=== PATIENT | male | born 1950 | race Caucasian/White ===

== ENCOUNTER 2016-02-23 05:37 | Day surgery (SDC) | payer OTHER ==
[~2016-02-23] VITALS: Ht 175.3 cm; Wt 69.4 kg
--- NOTE | ~2016-02-23 | CNG ---
[facility] [address] CYTO-NONGYN REPORT PROCEDURE Name: SHAHEED BARRIOS Room #: DEP [facility]..#: [id number] Admission: 02/23/16 Date of : 46 Discharge: 02/23/16 Report #: [id number] Path Case #: [id number] CYTOPATHOLOGY REPORT COLLECTION DATE: 02/23/2016 RECEIVED DATE: 02/23/2016 SUBMITTING PHYS: Dr. Enzo Chavira OTHER PHYS: CLINICAL HISTORY: Lung mass. PROCEDURE: A. Passes performed by Dr. Chavira yielding fluid. Two H and E slides, and 35 mL from needle rinsed in CytoLyt were submitted to the lab. B. Passes performed by Dr. Chavira yielding fluid. Four H and E slides, and 30 mL from needle rinsed in CytoLyt were submitted to the lab. SPECIMEN(S) RECEIVED: A.EBUS guided Fine needle aspiration, lymph node 10R B.EBUS guided Fine needle aspiration, lymph node 7 * * * * * * * * * * * * FINAL DIAGNOSIS: A. EBUS guided Fine needle aspiration, lymph node 10R: - No malignant epithelial cells identified. -Few bronchial epithelial cells, lymphoid material, cartilage and blood identified. B. EBUS guided Fine needle aspiration, lymph node 7: - No malignant epithelial cells identified. -Few bronchial epithelial cells, lymphoid material, cartilage and blood identified. COMMENT: Of note, these are small portions of larger lesions and may not be safety representative. The case is co-reviewed with Dr. Cira Slaughter. Clinical and radiographic correlation is required. PATHOLOGIST: Yajaira Arriola M.D. REPORT ELECTRONICALLY SIGNED BY: Yajaira Arriola M.D. DATE/TIME: 02/26/2016 21:28 * * * * * * * * * * * * GROSS PATHOLOGY: A. EBUS guided Fine needle aspiration, lymph node 10R: The specimen is labeled "Shaheed Barrios" and consists of two H and E slides. Thirty-five mL of clear colorless fluid in formalin from the needle rinse is also submitted and a cell block only was prepared from this [facility] [place] [address] CYTO-NONGYN REPORT PROCEDURE Name: SHAHEED BARRIOS Room #: [facility].#: [id number] Admission: 02/23/16 Date of : 46 Discharge: 02/23/16 Report #: [id number] Path Case #: [id number] material. B. EBUS guided Fine needle aspiration, lymph node 7: The specimen is labeled "Shaheed Barrios" and consists of four H and E slides. Thirty mL of brown cloudy fluid in formalin from the needle rinse is also submitted and a cell block only was prepared from this material. (clt 02.23.2016) IMMEDIATE EVALUATION: A. Lymph node 10R: Per Dr. Arriola: Lymphoid tissue present. B. Lymph node 7: Per Dr. Arriola: Lymphoid tissue present and blood. Professional services performed by [facility] at [address] [place] [address] [employer](S): [place]([facility]) INITIAL CPT CODE(S): A; 67019, 60018, 70753 B; 76863, 56474, 69810 Professional services performed by [facility] at [facility] [address] [facility] , [place] [address] Technical services performed by [facility] at [address] [place] [address], [address], [place] [address]. [facility] [address] [place] [address], [address] [place] [address] PHONE: [phone] DIRECTOR: Russell Ngo M.D. * * * END OF REPORT * * *
--- NOTE | ~2016-02-23 | P ---
[facility] [place] [address] PROCEDURE REPORT Name: SHAHEED BARRIOS Room #: DEP [facility]#: [id number] Admission: 02/23/16 Attend Phys: Enzo Chavira MD Discharge: 02/23/16 Date of : 46 Report #: [id number] THIS REPORT FOR: //name// CC: Kendell Barrios MD DATE OF SERVICE: 02/23/2016 PROCEDURE: Fiberoptic bronchoscopy with white light bronchoscope as well as endobronchial ultrasound, surveillance of mediastinal lymph nodes and sampling of level 7 lymph node as well as 10R under general endotracheal anesthesia. INDICATION: History of nonsmall lung cancer, evaluate mediastinal lymph nodes for evidence of malignancy. ASA classification class II. PROCEDURE NOTATION: After discussing risks, benefits of planned procedure with the patient, he desired to proceed. After obtaining informed consent, the patient was brought to the OR room 2 where he was placed under general endotracheal anesthesia by anesthesia service. Please see their notes for details in this regard. Once accomplished, a white light bronchoscope was passed through the endotracheal tube until the distal trachea was noted. The endotracheal tube was repositioned in a good position to allow adequate visualization of the mediastinal structures using the endobronchial ultrasound. Airways were then surveyed with a white light microscope. Mainstem, lobar, segmental and subsegmental bronchi were explored. Right upper lobe had significant edema and extrinsic compression coming from the posterior portion. There was significant narrowing of RB-2, but otherwise patent airways. The white light bronchoscope was then removed and endobronchial ultrasound was inserted. The mediastinal structures were surveyed in the usual fashion. Of note was a 7.5 mm 10R node. A 10 mm level 7 lymph node and a 4.5 mm 4R node. No significant other adenopathy was noted. Because the level 7 and 10R were larger than 5 mm, these were sampled initially using 25-gauge needles and then subsequently 22 gauge needles with specimen sent for rapid onside evaluation as well as histopathology in formalin. Several specimens of both locations were obtained without significant difficulty. The patient tolerated well. No noted complications. Initial onside rapid pathology was negative for malignancy with good lymphocyte population . IMPRESSION: Nonsmall cell lung cancer status post bronchoscopy under general endotracheal anesthesia with endobronchial ultrasound and sampling with fine needle aspirates of level 7 and [address] [address] PROCEDURE REPORT Name: LAKEISHASHAHEED Calvin [id number] Admission: 02/23/16 Attend Phys: Enzo Chavira MD Discharge: 02/23/16 Date of : 46 Report #: [id number] PLAN: Await final pathology. <ELECTRONICALLY SIGNED> By: Enzo Chavira MD 02/26/16 0904 1345 1835 Enzo Chavira MD /nt
[~2016-02-23 05:37] MED LIST: ACCUNEB SO1.25 MG/1 IN; ADVAIR 250-501 EACH IN; ADVAIR 250-501 EACH INH; ADVAIRDISKUS; ALDACTONE25 MG PO; AVELOX 400 MG400 MG PO; CALCIUM 500 +1 EAC5 PO; CARDIZEM CD180 MG PO; MUCINEX TA600 MG/TA1 PO; MUCINEX TA600 MG/TA2 PO; PREDNISOLONE 5 M5 MG PO; PREDNISONE 5 MG5 M1; PROAIR HFA8.5 GM INH; SPIRIVA IN; SPIRIVA INH
[2016-02-23 08:45] VITALS: BP 148/85
[2016-02-23 09:30] LABS: HEMATOCRIT 41.6 % (42.0-52.0); HEMOGLOBIN 14.2 gm/dL (14.0-18.0); MCH 32.7 pg (26.0-34.0); MCHC 34.3 % (28.0-37.0); MCV 95.3 fL (80.0-100.0); RBC 4.36 mil/uL (4.50-6.00); RDW 12.8 % (10.5-14.5); WBC 11.2 thou/uL (4.0-11.0)
[2016-02-23 09:41] LABS: PROTIME 9.9 Seconds (9.3-11.4)
== END 2016-02-23 14:00 | disposition home or self-care (01) ==
LOC: TBA 05:37 → OR 05:37
PROVIDERS: Internal Medicine Pulmonary Disease
DX: C34.90 Malignant neoplasm of unspecified part of unspecified bronchus or lung (principal); J44.9 Chronic obstructive pulmonary disease, unspecified; Z98.890 Other specified postprocedural states
CPT/HCPCS: 50010; 62110; 62900; 70005

== ENCOUNTER → 2016-08-09 | Outpatient (CLI) | payer OTHER | LOC: HYPER 08:12 | DX: T81.4XXA Infection following a procedure, initial encounter (principal); T80.219A Unspecified infection due to central venous catheter, initial encounter; R21 Rash and other nonspecific skin eruption; J44.9 Chronic obstructive pulmonary disease, unspecified; Z99.81 Dependence on supplemental oxygen; Z87.01 Personal history of pneumonia (recurrent); Z85.118 Personal history of other malignant neoplasm of bronchus and lung; Z87.891 Personal history of nicotine dependence; Z72.89 Other problems related to lifestyle; Y83.8 Other surgical procedures as the cause of abnormal reaction of the patient, or of later complication, without mention of misadventure at the time of the procedure ==

== ENCOUNTER → 2016-08-15 | Outpatient (CLI) | payer OTHER | LOC: HYPER 07:00 | DX: T81.4XXD Infection following a procedure, subsequent encounter (principal); T80.219D Unspecified infection due to central venous catheter, subsequent encounter; R21 Rash and other nonspecific skin eruption; J44.9 Chronic obstructive pulmonary disease, unspecified; Z99.81 Dependence on supplemental oxygen; Z87.01 Personal history of pneumonia (recurrent); Z85.118 Personal history of other malignant neoplasm of bronchus and lung; Z87.891 Personal history of nicotine dependence; Z72.89 Other problems related to lifestyle; Y83.8 Other surgical procedures as the cause of abnormal reaction of the patient, or of later complication, without mention of misadventure at the time of the procedure ==

== ENCOUNTER → 2016-09-02 | Outpatient (CLI) | payer OTHER | LOC: HYPER 07:06 | DX: T81.4XXD Infection following a procedure, subsequent encounter (principal); J44.9 Chronic obstructive pulmonary disease, unspecified; Z99.81 Dependence on supplemental oxygen; Z87.01 Personal history of pneumonia (recurrent); Z85.118 Personal history of other malignant neoplasm of bronchus and lung; Z87.891 Personal history of nicotine dependence; Z72.89 Other problems related to lifestyle; Y83.8 Other surgical procedures as the cause of abnormal reaction of the patient, or of later complication, without mention of misadventure at the time of the procedure ==

== ENCOUNTER → 2016-09-23 | Outpatient (CLI) | payer OTHER | LOC: HYPER 07:08 | DX: T81.4XXD Infection following a procedure, subsequent encounter (principal); J44.9 Chronic obstructive pulmonary disease, unspecified; R21 Rash and other nonspecific skin eruption; Z87.01 Personal history of pneumonia (recurrent); Z85.118 Personal history of other malignant neoplasm of bronchus and lung; Z87.891 Personal history of nicotine dependence; Z72.89 Other problems related to lifestyle; Y83.8 Other surgical procedures as the cause of abnormal reaction of the patient, or of later complication, without mention of misadventure at the time of the procedure ==

== ENCOUNTER → 2016-10-15 | Outpatient (CLI) | payer OTHER | LOC: HYPER 07:22 | DX: T81.4XXD Infection following a procedure, subsequent encounter (principal); J44.9 Chronic obstructive pulmonary disease, unspecified; R21 Rash and other nonspecific skin eruption; Z87.01 Personal history of pneumonia (recurrent); Z99.81 Dependence on supplemental oxygen; Z85.118 Personal history of other malignant neoplasm of bronchus and lung; Z87.891 Personal history of nicotine dependence; Z72.89 Other problems related to lifestyle; Y83.8 Other surgical procedures as the cause of abnormal reaction of the patient, or of later complication, without mention of misadventure at the time of the procedure ==

== ENCOUNTER → 2016-10-21 | Outpatient (CLI) | payer OTHER ==
--- NOTE | ~2016-10-21 | EKG ---
[address] [place] [address] ELECTROCARDIOGRAM REPORT Name: KAJAL SUAZOPAOLA GEOVANNA Room #: [facility]#: [id number] Admission: 10/21/16 Attend Phys: Enzo Chavira MD Discharge: Date of : 46 Report #: [id number] THIS REPORT FOR: //name// [facility] Test Date: 2016-10-21 Test Time: 12:18:46 Pat Name: JENA SUAZO Department: Room: Gender: M Management Recruiter: Miladis DÍAZ : 1950 Requested By: Enzo Chavira Order Number: [id number] MD: Kojo Bravo Measurements Intervals [place] Rate: 97 P: 66 WA: 142 QRS: 22 QRSD: 83 T: 60 QT: 350 QTc: 445 Interpretive Statements Sinus tachycardia Atrial premature complexes Right atrial abnormality Compared to ECG 08/01/2011 10:43:20 No significant change was found Electronically Signed On 10-21-2016 16:41:30 CDT by Kojo Bravo [email or web address] <ELECTRONICALLY SIGNED> By: Kojo Bravo MD, [facility] 10/21/16 1641 1218 1218 Kojo Bravo MD, [facility] /EPI
[2016-10-21 13:03] LABS: HEMATOCRIT 42.3 % (42.0-52.0); HEMOGLOBIN 14.5 gm/dL (14.0-18.0); MCH 32.8 pg (26.0-34.0); MCHC 34.1 g/dL (28.0-37.0); PLATELET COUNT 275 thou/uL (150-400); RBC 4.41 mil/uL (4.50-6.00); WBC 9.2 thou/uL (4.0-11.0)
[2016-10-21 13:04] LABS: MANUAL DIFF YES
[2016-10-21 13:05] LABS: CALCIUM 9.8 mg/dL (8.5-10.1); CREATININE 0.8 mg/dL (0.7-1.3); POTASSIUM 4.4 mmol/L (3.5-5.1)
[2016-10-21 13:51] LABS: TOTAL CELL COUNT 100
[2016-10-21 13:52] LABS: ABSOLUTE NEUTROPHILS 6.9 thou/uL (1.4-8.2)
== END ==
LOC: CV 11:55
PROVIDERS: Internal Medicine Pulmonary Disease
DX: R00.0 Tachycardia, unspecified (principal)

== ENCOUNTER → 2017-01-27 | Outpatient (CLI) | payer OTHER | LOC: RAD 09:19 | DX: J18.9 Pneumonia, unspecified organism (principal) ==